=== PATIENT | female | born 2000 | race Caucasian/White ===

== ENCOUNTER 2019-09-08 14:21 | Emergency (ER) | payer OTHER, MEDICAID, SELFPAY ==
[2019-09-08 14:31] VITALS: BP 139/88; PULSE 84; RESP 12; TEMP 37.3; O2SAT 100; BMI 20.7
[2019-09-08 15:28] VITALS: BP 123/69; PULSE 58; RESP 18; O2SAT 98
--- NOTE | 2019-09-08 15:29 | ED.URI ---
HPI - URI/Sore Throat <RADHA Paul - Last Filed: 09/08/19 15:35> General Chief Complaint: Upper Respiratory Symptoms Stated Complaint: sick for week,sore throat Time Seen by Provider: 09/08/19 14:31 Source: patient Mode of arrival: Ambulatory Limitations: no limitations History of Present Illness HPI Narrative: This is a 19-year-old female, vapor, who presents to ED with friend with chief complain of cold symptoms such as cough, ear and nasal congestion. Patient denies fever. Patient reports last night when she looked in her throat due to pain with swallowing, noticed white spots and swelling on her left side tonsil. Patient also reports body aches and headaches. Patient denies recent foreign travel. One of her friends were sick with for laryngitis recently and treated with antibiotic medications. Related Data Allergies Allergy/AdvReac Type Severity Reaction Status Date / Time guaifenesin [From Robitussin] Allergy Severe Hives Verified 09/08/19 14:34 Review of Systems <RADHA Paul - Last Filed: 09/08/19 15:35> Review of Systems Narrative: General: Denies fever, chills, fatigue, malaise, sweats. HEENT: See HPI Respiratory: Denies dyspnea, (+) cough, wheezing, hemoptysis, sputum. Cardiovascular: Denies chest pain, palpitations, orthopnea, edema. Gastrointestinal: Denies nausea, vomiting, abdominal pain, diarrhea, constipation, melena. : Denies dysuria, frequency, incontinence, hematuria, urinary retention. Musculoskeletal: Denies weakness, joint pain or bony pain. Skin: Denies rash, skin lesions, or other. Neurologic: Denies weakness, headache, numbness, change in speech, confusion, seizures, incoordination. Psychiatric: No concerning psychosocial issues. 12-point review of systems is negative except for those stated above. Patient History <RADHA Paul - Last Filed: 09/08/19 15:35> Medical History Depression (Acute) Surgical History No pertinent past surgical history (Acute) tobacco type: vaping Substance Use Type: marijuana Exam <Harvinder RADHA Bosch - Last Filed: 09/08/19 15:35> Narrative Exam Narrative: GEN: Alert, oriented x 3, well appearing and nourished, and in no acute distress. Head: Normal cephalic, atraumatic. No scalp or temporal tenderness, palpable mass or rash. EYES: Pupils are equal, round, and reactive to light and accommodation. Extraocular muscles are intact bilaterally. There is no subconjunctival hemorrhage, exudate and sclera non-icteric. ENT: Bilateral auditory canals and tympanic membranes clear. Hearing grossly intact. Nose without bleeding, purulent discharge or deviation. Facial sinuses nontender to palpate. Mucous membrane moist, no mucosal lesion. Throat with erythema and tonsillar hypertrophy with a few exudate right tonsil. Uvula in midline, airway patent. Neck: Trachea in midline. No JVD, non-tender without lymphadenopathy. No masses or thyroid megaly. Supple, non-tender and no meningeal signs. CARDIAC: Normal regular rate and rhythm without murmurs, gallops, or rubs. No chest wall tenderness. No peripheral edema, cyanosis or pallor. Capillary refill is less than 2 seconds. RESPIRATORY: Lungs are clear to auscultate bilaterally. No cough, wheezes, rales, or rhonchi. No stridor, respiratory distress, increase work of breathing, or accessary muscle used. ABD: Abdomen soft, nontender and non-distended. No guarding or rebound tenderness to palpate. Bowel sounds are normal in all 4 quadrants. There is no palpable masses or organomegaly. EXT: Full painless ROM of all extremities with no loss of sensation, strength, effusion or edema. SKIN: Warm, dry, normal color for patient. No erythema, lesions or rash over visible areas. BACK: Nontender without deformity or crepitance. No flank tenderness. NEUROLOGICAL: Alert and oriented to place, time and person. Sensation and motor function intact bilaterally. No facial droops, dysphasia. PSYCHIATRIC: Good judgement and reason, without hallucinations, abnormal affect or abnormal behaviors during the examination. Patient is not suicidal. Initial Vital Signs Initial Vital Signs: Vital Signs Temperature 99.1 F 09/08/19 14:31 Pulse Rate 84 09/08/19 14:31 Respiratory Rate 12 09/08/19 14:31 Blood Pressure 139/88 02/28/20 14:31 Pulse Oximetry 100 09/08/19 14:31 <Kashmir Parks DO - Last Filed: 09/08/19 16:10> Initial Vital Signs Initial Vital Signs: Vital Signs Temperature 99.1 F 09/08/19 14:31 Pulse Rate 84 09/08/19 14:31 Respiratory Rate 12 09/08/19 14:31 Blood Pressure 139/88 09/08/19 14:31 Pulse Oximetry 100 09/08/19 14:31 Scores <Harvinder BoschFAISALP - Last Filed: 09/08/19 15:35> GCS [place] coma scale eye opening: Spontaneous [place] coma scale verbal response: Orientated [place] coma scale motor response: Obey commands [place] coma scale total score: 15 Course <Harvinder HiroRADHA - Last Filed: 09/08/19 15:35> Vital Signs Vital signs: Vital Signs - 8 hr 09/08/19 14:31 09/08/19 15:28 Temperature 99.1 F Pulse Rate 84 58 L Respiratory Rate 12 18 Blood Pressure 139/88 Blood Pressure [Left Arm] 123/69 Pulse Oximetry 100 98 <Kashmir Parks DO - Last Filed: 09/08/19 16:10> Vital Signs Vital signs: Vital Signs - 8 hr 09/08/19 14:31 09/08/19 15:28 Temperature 99.1 F Pulse Rate 84 58 L Respiratory Rate 12 18 Blood Pressure 139/88 Blood Pressure [Left Arm] 123/69 Pulse Oximetry 100 98 MDM - URI/Sore Throat <Parnassus CampusFelipeFAISALP - Last Filed: 09/08/19 15:35> Differential Diagnosis Differential diagnosis: Likely upper respiratory infection, otitis media, viral infection, pharyngitis and other (Strep throat infection) Medical Records Attestation: I reviewed the patient's medical records. Lab Data Attestation: I reviewed the patient's lab results. Labs: Point of Care Testing Rapid Strep A Negative MDM Narrative Medical decision making narrative: Strep test was negative in ED. There are tonsillar hypertrophy with erythema and few white spots appreciated during throat exam. Lung sounds are clear. Normal ear exam. Patient advise continue with supportive care with adequate hydration and [id number] Tylenol and or Motrin as needed for discomfort and fever. Patient advised to use nasal steroid for nasal congestion with patient has at home. Also, patient advise it will be helpful to use Mucinex decongestant for nasal and ear congestion. Patient advised to use honey for cough and good hand hygiene to prevent transmitting illness to others. Return precautions were discussed with the patient and patient verbalized understanding and in agreement with the treatment plan. <Kashmir Parks DO - Last Filed: 09/08/19 16:10> Lab Data Labs: Point of Care Testing Rapid Strep A Negative Discharge Plan Departure Patient Disposition: Home Clinical Impression: Pharyngitis Qualifiers: Pharyngitis/tonsillitis etiology: unspecified etiology Qualified Code(s): J02.9 - Acute pharyngitis, unspecified Discharge Date/Time: 09/08/19 15:36 Instructions: DI for Pharyngitis/Tonsillopharyngitis -- Adult Activity Restrictions/Additional Instructions: You have been diagnosed with [pharyngitis. Strep throat test was negative in ED today.]. What to do: *Take your medications as directed. You can take Tylenol and or Motrin as needed for discomfort fever. Also, he can take Mucinex D (Decongestion) for ear pressure and nasal congestion. Please continue with supportive care with rest and good hydration. Good hand hygiene will help with preventing transmitting illness to others. *Follow up with your primary care provider in 2-3 days, call for an appointment. Let them know you were seen in the ED and that we asked you to be seen in follow up. *Return to ED if you have any new, worsening, or concerning symptoms, such as [chest pain, breathing difficulty, unable to tolerate fluids, fever not managed with Tylenol and or Motrin, unusual rash, or any acute concerns]. Referrals: Masha Christiansen MD [Non-Staff] - <Kashmir Parks DO - Last Filed: 09/08/19 16:10> Sign Out Provider Sign Out Attestation: Dr Parks Co-Sign Statement: I was available for consultation during this patient's emergency department visit. This chart is signed by myself for administrative purposes only. I did not have direct contact with this patient during this visit. They were seen independently by the APC.
== END 2019-09-08 15:36 | disposition home or self-care (01) ==
PROVIDERS: Emergency Provider Nurse Practitioner Family
DX: J02.9 Acute pharyngitis, unspecified (principal)
CPT/HCPCS: 87880; 99282

== ENCOUNTER → 2020-10-31 12:02 | Outpatient (CLI) | payer OTHER, MEDICAID, SELFPAY ==
[2020-10-31 12:46] LABS: COVID19 -Nasal RAPID Negative (Negative)
== END ==
PROVIDERS: Visit Provider Student in an Organized Health Care Education/Training Program
DX: J02.9 Acute pharyngitis, unspecified (principal); R05 Cough; R09.81 Nasal congestion
CPT/HCPCS: 87635

== ENCOUNTER 2021-05-08 23:31 | Emergency (ER) | payer OTHER, MEDICAID, SELFPAY ==
[2021-05-08 23:37] VITALS: BP 135/92; PULSE 76; RESP 18; TEMP 36.6; O2SAT 100
[2021-05-09 00:09] LABS: COVID19 -Nasal RAPID Negative (Negative)
--- NOTE | 2021-05-09 00:21 | ED.RECABL ---
HPI - Recheck/Abnormal Lab/Rx General Chief Complaint: Recheck/Abnormal Lab/Rx Stated Complaint: requesting covid test Time Seen by Provider: 05/09/21 00:21 Mode of arrival: Ambulatory Limitations: no limitations History of Present Illness HPI narrative: Patient is a 21-year-old female history of depression presenting with need for COVID test. She actually had COVID in February of 2021 after that she are vaccinated she just received her 2nd vaccine less than 2 weeks ago. Her mother whom she lives with tested positive for COVID 3 days ago. She is currently asymptomatic but needs to go to work. She says when she had COVID previously she had all the symptoms including fever body aches diarrhea headache loss of taste or smell cough and sore throat. She currently has none of those. Related Data Home Medications Medication Instructions Recorded Confirmed No Known Home Medications 10/31/20 10/31/20 Allergies Allergy/AdvReac Type Severity Reaction Status Date / Time guaifenesin [From Robitussin] Allergy Severe Hives Verified 10/31/20 11:59 Review of Systems Review of Systems Narrative: GENERAL: Denies chills,fever HEENT: Denies throat pain RESPIRATORY: Denies dyspnea, cough, wheezing CARDIOVASCULAR: Denies chest pain, palpitations GASTROINTESTINAL: Denies nausea, vomiting MUSCULOSKELETAL: Denies extremity pain, injury SKIN: No rash, no laceration, no pruritus NEUROLOGIC: Denies weakness, dizziness, headache, numbness 8 point review of systems is negative except for those stated above and HPI Patient History Medical History (Updated 05/09/21 @ 00:32 by Nasreen Stubbs DO) Depression Surgical History No pertinent past surgical history tobacco type: vaping Substance Use Type: marijuana Exam Initial Vital Signs Initial Vital Signs: Vital Signs Temperature 98 F 05/08/21 23:37 Pulse Rate 76 05/08/21 23:37 Respiratory Rate 18 05/08/21 23:37 Blood Pressure 135/92 H 05/08/21 23:37 Pulse Oximetry 100 05/08/21 23:37 GENERAL: Well-appearing, well-nourished and in no acute distress. CARDIOVASCULAR: peripheral pulses in tact, cap refill <2 sec RESPIRATORY: No respiratory distress, speaks in full sentences without difficulty EXTREMITIES: Normal range of motion, no clubbing or edema. Neurovascularly intact NEUROLOGICAL: Cranial nerves II through XII grossly intact. Normal gait and speech. SKIN: Warm, dry, no petechiae, no rashes or lesions. Course Orders Ordered: ED Orders 05/08/21 23:40 COVID19 -Nasal swab/Pre-Proc Stat Vital Signs Vital signs: Vital Signs - 8 hr 05/08/21 23:37 Temperature 98 F Pulse Rate 76 Respiratory Rate 18 Blood Pressure 135/92 H Pulse Oximetry 100 MDM - Recheck/Abnormal Lab/Rx Lab Data Labs: Lab Results 05/08/21 Range/Units 23:40 SARS-CoV-2 (PCR) Negative (Negative) Discharge Plan Departure Patient Disposition: Home Clinical Impression: Worried well Instructions: How to Care for Someone with COVID-19 Activity Restrictions/Additional Instructions: *You have been diagnosed with worried well *What to do: At this time her COVID test is negative. Please have your mother stay quarantined. You may need repeat testing in about 3-5 days if you should develop any symptoms. *Continue to take medications as directed *Follow up with your primary care provider in 2-3 days *Return to ER if you should have any new, worsening or concerning symptoms Prescriptions: No Action No Known Home Medications RF: 0 Referrals: Miscellaneous,Doctor, [Primary Care Provider] -
== END 2021-05-09 00:35 | disposition home or self-care (01) ==
PROVIDERS: Emergency Provider Emergency Medicine
DX: Z20.822 Contact with and (suspected) exposure to COVID-19 (principal)
CPT/HCPCS: 87635; 99281; C9803